=== PATIENT | male | born 1975 | race African-American/Black ===

== ENCOUNTER → 2017-03-01 | Outpatient (CLI) | payer BC ==
[2017-03-01 13:01] LABS: ABSOLUTE EOSINOPHILS # (AUTO) 0.2 10^3/uL (0.0-0.6); ABSOLUTE LYMPHOCYTES (AUTO) 2.5 10^3/uL (0.5-4.7); ABSOLUTE MONOCYTES (AUTO) 0.6 10^3/uL (0.1-1.4); ABSOLUTE NEUT (AUTO) 2.8 10^3/uL (1.7-8.2); BASOPHILS % (AUTO) 0.8 % (0-2); EOSINOPHILS % (AUTO) 3.2 % (0-6); HEMATOCRIT 50.6 % (37.9-51.0); HEMOGLOBIN 16.8 g/dL (13.5-17.0); HGB HCT DIFFERENCE -0.2; MEAN CORPUSCULAR HEMOGLOBIN 32.3 pg (27.0-33.4); MEAN CORPUSCULAR HGB CONC 33.2 g/dL (32.0-36.0); MEAN CORPUSCULAR VOLUME 97 fl (80-97); WHITE BLOOD COUNT 6.2 10^3/uL (4.0-10.5)
[2017-03-01 13:18] LABS: ALANINE AMINOTRANSFERASE 18 U/L (21-72); ALBUMIN 4.4 g/dL (3.5-5.0); ALKALINE PHOSPHATASE 100 U/L (38-126); ASPARTATE AMINO TRANSFERASE 21 U/L (17-59); BILIRUBIN,DIRECT 0.4 mg/dL (0.0-0.4); CHOLESTEROL 164.75 mg/dL (0-200); Direct HDL 42 mg/dL (>40); TOTAL PROTEIN 8.3 g/dL (6.3-8.2); TRIGLYCERIDES 71 mg/dL (<150)
[2017-03-01 13:35] LABS: DIRECT LDL 98 mg/dL (<100)
== END ==
LOC: DACC 11:20
PROVIDERS: ATTEND Physician Assistant
DX: L70.0 Acne vulgaris (principal)
CPT/HCPCS: 36415; 80061; 80076; 85025

== ENCOUNTER 2019-05-17 12:43 | Emergency (ER) | payer BC ==
[2019-05-17] MEDS ORDERED: KETOROLAC TROMETHAMINE INJ/PF 30 MG/1 ML SDV IV ONE (13:19)
[2019-05-17] MEDS ORDERED: NORMAL SALINE 1000 ML 1,000 ML IV ONE (13:19)
--- NOTE | 2019-05-17 13:21 | ER Document Report ---
ED Medical Screen (RME) - General Chief Complaint: Abdominal Pain Stated Complaint: ABDOMINAL PAIN Time Seen by Provider: 05/17/19 13:18 Primary Care Provider: MARICRUZ VITAL PA [Primary Care Provider] - Follow up as needed Mode of Arrival: Ambulatory Information source: Patient Notes: 43-year-old male presented to ED for complaint of right flank pain and abdominal pain for the last 3 or 4 days. He states it comes and goes waxes and wanes. He states sometimes he gets a headache and dizziness. States right now it is about a 3 out of 5 earlier today it was a 5 out of 5. He states he does smoke a pack and a half a day drinks 2 times a week does not do any kind of street drugs and works at [employer]. He states he lives alone. He is alert oriented respirations regular and unlabored speaking in full sentences walks with a even steady gait. His only medical history is high blood pressure. Patient is nontoxic in appearance at this time. I have greeted and performed a rapid initial assessment of this patient. A comprehensive ED assessment and evaluation of the patient, analysis of test results and completion of medical decision making process will be conducted by an additional ED providers. TRAVEL OUTSIDE OF THE [place] IN LAST 30 DAYS: No - Related Data Allergies/Adverse Reactions: No Known Allergies Allergy (Verified 05/17/19 12:44) Past Medical History - Social History Chew tobacco use (# tins/day): No Frequency of alcohol use: Social Drug Abuse: None Pulmonary Medical History: Denies: Hx Tuberculosis Renal/ Medical History: Denies: Hx Peritoneal Dialysis Past Surgical History: Denies: Hx Pacemaker - Immunizations Hx Diphtheria, Pertussis, Tetanus Vaccination: Yes Physical Exam - Vital signs Vitals: Temp Pulse Resp BP Pulse Ox 97.6 F 72 20 118/70 99 05/17/19 12:57 05/17/19 12:57 05/17/19 12:57 05/17/19 12:57 05/17/19 12:57 Course - Vital Signs Vital signs: Temp Pulse Resp BP Pulse Ox 97.6 F 72 20 118/70 99 05/17/19 12:57 05/17/19 12:57 05/17/19 12:57 05/17/19 12:57 05/17/19 12:57 Doctor's Discharge - Discharge Referrals: MARICRUZ VITAL PA [Primary Care Provider] - Follow up as needed
--- NOTE | 2019-05-17 13:47 | ER Document Report ---
ED General - General Chief Complaint: Abdominal Pain Stated Complaint: ABDOMINAL PAIN Time Seen by Provider: 05/17/19 13:18 Primary Care Provider: MARICRUZ VITAL PA [NO LOCAL MD] - Follow up as needed Mode of Arrival: Ambulatory TRAVEL OUTSIDE OF THE [place] IN LAST 30 DAYS: No - HPI Notes: 43-year-old male to the emergency department with complaints of right flank pain that radiates around to the front of his abdomen for the past 3 days. He denies any vomiting or diarrhea. He does admit to some nausea. He states that earlier today his pain was a 5 out of 5 and on presentation to triage she was a 3 out of 5 5 being the worst pain. He denies any fevers, chills, chest pain, shortness of breath, hematuria, difficulty urinating, burning with urination. He denies any blunt trauma to the abdomen. He does work outside and admits that he has been sweating quite a bit for the past 3 days. He denies worsening pain with eating. He denies any history of abdominal surgery. He denies any testicular pain. - Related Data Allergies/Adverse Reactions: No Known Allergies Allergy (Verified 05/17/19 12:44) Past Medical History - General Information source: Patient - Social History Smoking Status: Current Every Day Smoker Chew tobacco use (# tins/day): No Frequency of alcohol use: Social Drug Abuse: None Lives with: Spouse/Significant other Family History: Reviewed & Not Pertinent Patient has suicidal ideation: No Patient has homicidal ideation: No Pulmonary Medical History: Denies: Hx Tuberculosis Renal/ Medical History: Denies: Hx Peritoneal Dialysis Past Surgical History: Denies: Hx Pacemaker - Immunizations Hx Diphtheria, Pertussis, Tetanus Vaccination: Yes Review of Systems - Review of Systems Constitutional: Malaise. denies: Chills, Fever EENT: No symptoms reported Cardiovascular: denies: Chest pain, Palpitations, Dyspnea, Syncope, Dizziness, Lightheaded Respiratory: denies: Cough, Short of breath Gastrointestinal: Abdominal pain, Nausea. denies: Diarrhea, Vomiting Genitourinary: Flank pain. denies: Burning, Dysuria, Frequency, Hematuria Male Genitourinary: denies: Testicular pain Musculoskeletal: No symptoms reported Skin: No symptoms reported Neurological/Psychological: No symptoms reported -: Yes All other systems reviewed and negative Physical Exam - Vital signs Vitals: Temp Pulse Resp BP Pulse Ox 97.6 F 72 20 118/70 99 05/17/19 12:57 05/17/19 12:57 05/17/19 12:57 05/17/19 12:57 05/17/19 12:57 Interpretation: Normal - General General appearance: Appears well In distress: None - HEENT Head: Normocephalic, Atraumatic Eyes: Normal Pupils: PERRL - Respiratory Respiratory status: No respiratory distress Chest status: Nontender Breath sounds: Normal Chest palpation: Normal - Cardiovascular Rhythm: Regular Heart sounds: Normal auscultation Murmur: No - Abdominal Inspection: Normal Distension: No distension Bowel sounds: Normal Tenderness: Tender - Mild right flank tenderness to palpation. Negative Otero sign. Negative McBurney's point. No Rovsing's. No rebound or guarding. No CVA tenderness. Organomegaly: No organomegaly - Back Back: Normal, Nontender, Other - Supple sebaceous cyst to the back. None are tender to palpation. There is no evidence for superimposed infection. - Neurological Neuro grossly intact: Yes Cognition: Normal Orientation: AAOx4 Edson Coma Scale Eye Opening: Spontaneous Edson Coma Scale Verbal: Oriented Priyanka Coma Scale Motor: Obeys Commands Priyanka Coma Scale Total: 15 Speech: Normal Motor strength normal: LUE, RUE, LLE, RLE Sensory: Normal - Psychological Associated symptoms: Normal affect, Normal mood - Skin Skin Temperature: Warm Skin Moisture: Dry Skin Color: Normal Course - Re-evaluation Re-evalutation: 05/17/19 15:[address] reading with perinephric stranding. Noted urinalysis which is consistent with a urinary tract infection. Given his symptoms and his pain in the right flank suspect that this is likely a mild pyelonephritis. Noted elevated hemoglobin and mild acute kidney injuryhis creatinine is 1.35. Suspect that there is a level some dehydration here as well given his job. He was given Toradol from triage as well as a bag of fluid. We will give another 500 mL of normal saline and infuse 1 g of Rocephin. We have discussed his small acute kidney injury and how I would like for him not to take any further NSAIDs. Would like for him to have his creatinine redrawn on Sunday or Sunday to monitor it since he did get some Toradol today. The patient is not febrile, hypotensive, tachycardic, tachypneic. He does not have a leukocytosis. We will culture the urine. We will plan on sending him home with cephalosporins as well as small amount of pain medicine. He will be encouraged to return if he has worsening pain, fevers, intractable nausea/vomiting. Impression: Pyelonephritis, right flank pain, perinephritic stranding, mild acute kidney injury. Will discharge patient home with antibiotics and pain medicine. We will have him follow with primary care in the next 3 days and have his kidney function trended. We will also send to urology. Patient agrees with the plan. - Vital Signs Vital signs: Temp Pulse Resp BP Pulse Ox 97.6 F 72 20 118/70 99 05/17/19 12:57 05/17/19 12:57 05/17/19 12:57 05/17/19 12:57 05/17/19 12:57 - Laboratory Result Diagrams: 05/17/19 13:53 05/17/19 13:53 Laboratory results interpreted by me: 05/17/19 05/17/19 05/17/19 13:53 13:53 14:10 Hgb 18.4 H Hct 52.2 H MCV 100 H MCH 35.1 H RDW 14.5 H Chloride 97 L BUN 22 H Creatinine 1.35 H Est GFR (MDRD) Non-Af 57 L Direct Bilirubin 0.5 H Total Protein 9.7 H Albumin 5.1 H Urine Protein 30 H Urine Bilirubin SMALL H Urine Urobilinogen 4.0 H Ur Leukocyte Esterase MODERATE H - Diagnostic Test Radiology reviewed: Image reviewed, Reports reviewed Discharge - Discharge Clinical Impression: Pyelonephritis, Right flank pain, Acute kidney injury, Dehydration Condition: Stable Disposition: HOME, SELF-CARE Instructions: Pyelonephritis ([facility]) Additional Instructions: PUSH FLUIDS. STAY OUT OF THE HEAT. COMPLETE ANTIBIOTICS. REST. FOLLOW UP WITH PRIMARY CARE AND UROLOGY. HAVE YOUR KIDNEY FUNCTION REPEATED THIS WEEK ON EITHER SUNDAY OR SUNDAY. RETURN IF WORSENING PAIN, INTRACTABLE VOMITING, CHEST PAIN, SHORTNESS OF BREATH, OR ANY OTHER CONCERNS. STOP SMOKING. Prescriptions: Acetaminophen with Codeine [Tylenol #3 Tablet] 1 each PO Q4HP PRN #10 tablet PRN Reason: Cephalexin Monohydrate [Keflex 500 mg Capsule] 500 mg PO BID #20 capsule Forms: Return to Work Referrals: GIRMA MOJICA MD [ACTIVE STAFF] - Follow up in 3-5 days (for primary care f ollow up) [facility] [Provider Group] - Follow up in 1 week (for Urology follow up)
[2019-05-17 14:08] LABS: ABSOLUTE EOSINOPHILS # (AUTO) 0.1 10^3/uL (0.0-0.6); ABSOLUTE LYMPHOCYTES (AUTO) 2.1 10^3/uL (0.5-4.7); ABSOLUTE MONOCYTES (AUTO) 0.6 10^3/uL (0.1-1.4); ABSOLUTE NEUT (AUTO) 4.2 10^3/uL (1.7-8.2); BASOPHILS % (AUTO) 0.5 % (0-2); EOSINOPHILS % (AUTO) 1.1 % (0-6); HEMATOCRIT 52.2 % (37.9-51.0); HEMOGLOBIN 18.4 g/dL (13.5-17.0); LYMPHOCYTES % (AUTO) 30.1 % (13-45); MEAN CORPUSCULAR HEMOGLOBIN 35.1 pg (27.0-33.4); MEAN CORPUSCULAR HGB CONC 35.2 g/dL (32.0-36.0); MEAN CORPUSCULAR VOLUME 100 fl (80-97); MONOCYTES % (AUTO) 9.1 % (3-13); PLATELET COUNT 275 10^3/uL (150-450); RED BLOOD COUNT 5.23 10^6/uL (4.35-5.55); RED CELL DISTRIBUTION WIDTH 14.5 % (11.5-14.0); SEGMENTED NEUTROPHILS % (AUTO) 59.2 % (42-78); TOTAL CELLS COUNTED % (AUTO) 100 %
[2019-05-17 14:26] LABS: ALBUMIN 5.1 g/dL (3.5-5.0); ALKALINE PHOSPHATASE 116 U/L (38-126); ANION GAP 14 (5-19); ASPARTATE AMINO TRANSFERASE 38 U/L (17-59); BILIRUBIN,DIRECT 0.5 mg/dL (0.0-0.4); BILIRUBIN,TOTAL 1.2 mg/dL (0.2-1.3); BLOOD UREA NITROGEN 22 mg/dL (7-20); CALCIUM 10.1 mg/dL (8.4-10.2); CARBON DIOXIDE 27 mmol/L (22-30); CHLORIDE 97 mmol/L (98-107); GLUCOSE 105 mg/dL (75-110); POTASSIUM 3.8 mmol/L (3.6-5.0); TOTAL PROTEIN 9.7 g/dL (6.3-8.2)
--- NOTE | 2019-05-17 14:35 | RADIOLOGY REPORT (SQ) ---
EXAM DESCRIPTION: CT ABD/PELVIS NO ORAL OR IV COMPLETED DATE/TIME: 05/17/2019 2:10 pm REASON FOR STUDY: right flank pain . Right lower quadrant pain. Diffuse abdominal pain. COMPARISON: CT abdomen and pelvis 10/26/2011, 10/24/2011. TECHNIQUE: CT scan of the abdomen and pelvis performed without intravenous or oral contrast. Images reviewed with lung, soft tissue, and bone windows. Reconstructed coronal and sagittal MPR images revi ewed. All images stored on PACS. All CT scanners at this facility use dose modulation, iterative reconstruction, and/or weight based d osing when appropriate to reduce radiation dose to as low as reasonably achievable (ALARA). [facility]: Dose Right [facility]: CareDose [facility]: Dose Right [facility]: Teradose 4D [facility]: [employer] RADIATION DOSE: CT Rad equipment meets quality standard of care and radiation dose reduction techniq ues were employed. CTDIvol: 6.6 - 8.2 mGy. DLP: 490 mGy-cm.mGy. LIMITATIONS: None. FINDINGS: LOWER CHEST: No consolidation or pleural effusion. NON-CONTRASTED LIVER, SPLEEN, ADRENALS: Evaluation limited by lack of IV contrast. No identified sign ificant masses. PANCREAS: No peripancreatic inflammatory changes. GALLBLADDER: Present. RIGHT KIDNEY AND URETER: Mild perinephric stranding. Assessment for masses limited by lack of IV co ntrast. No significant calcifications. No hydronephrosis or hydroureter. LEFT KIDNEY AND URETER: Mild perinephric stranding. Assessment for masses limited by lack of IV cont rast. No significant calcifications. No hydronephrosis or hydroureter. AORTA AND RETROPERITONEUM: Atherosclerotic calcifications within the abdominal and its branches. No abdominal aortic aneurysm. No retroperitoneal masses or hemorrhage. BOWEL AND PERITONEAL CAVITY: No dilated bowel loops to suggest obstruction. No free fluid or free ai r. There is colonic diverticulosis with no CT evidence for acute diverticulitis. APPENDIX: Normal. PELVIS, BLADDER, AND ABDOMINAL WALL:No pelvic mass. No free fluid. Bladder partially distended. Ther e are small fat containing bilateral inguinal hernias. Enlarged lymph node at the right inguinal reg ion is measuring 1.4 cm in short axis. There is a 2.9 x 2.8 cm cystic lesion just underneath the skin in the right paraspinal soft tissues a t L2 level. Additional lesions with overlying skin thickening and soft tissue stranding at the right paraspinal soft tissues at L4 on L5 levels measuring 3.6 x 2.0 cm and 2.3 x 1.6 cm. BONES: No significant findings. IMPRESSION: 1. No hydronephrosis or obstructing ureteral calculus. Mild bilateral perinephric str anding, nonspecific, may be seen with acute infection/ inflammation such as pyelonephritis. Please c orrelate with laboratory values/ urinalysis. 2. 2.9 x 2.8 cm cystic lesion just underneath the skin at the right paraspinal soft tissues at L2 le gretchen and additional 3.6 x 2.0 cm and 2.3 x 1.6 cm lesions with overlying skin thickening and soft tiss ue stranding at the right paraspinal soft tissues at L4 and L5 levels, may represent sebaceous cysts. Please correlate with clinical exam to evaluate for superimposed infection/abscess formation. 3. Right inguinal adenopathy. 4. Colonic diverticulosis. COMMENT: Quality ID # [id number]: Final reports with documentation of one or more dose reduction techniques (e.g., Automated exposure control, adjustment of the mA and/or kV according to patient size, use of iterative reconstruction technique) TECHNICAL DOCUMENTATION: JOB ID: [id number] [place]-[employer] 2010 [employer]- All Rights Reserved Reading location - IP/workstation name: [email or web address]
[2019-05-17 14:42] LABS: APPEARANCE,URINE CLOUDY; BILIRUBIN,URINE SMALL (NEGATIVE); COLOR,URINE AMBER; GLUCOSE, URINE NEGATIVE (NEGATIVE); KETONES,URINE NEGATIVE (NEGATIVE); LEUKOCYTE ESTERASE,URINE MODERATE (NEGATIVE); NITRITE,URINE NEGATIVE (NEGATIVE); PROTEIN,URINE 30 mg/dL (NEGATIVE); URINE SPECIFIC GRAVITY 1.026
[2019-05-17] MEDS ORDERED: NORMAL SALINE 500 ML IV ONE (15:02)
[2019-05-17] MEDS ORDERED: CEFTRIAXONE 1 GM/D5W RTU 1 GM/50 ML RTUPB IV ONE (15:30)
[2019-05-17 16:27] VITALS: BP 124/77
== END 2019-05-17 16:22 | disposition home or self-care (01) ==
LOC: ER 12:43
DX: N12 Tubulo-interstitial nephritis, not specified as acute or chronic (principal); N17.9 Acute kidney failure, unspecified; E86.0 Dehydration; L72.3 Sebaceous cyst; R10.9 Unspecified abdominal pain; R11.0 Nausea; R53.81 Other malaise; F17.200 Nicotine dependence, unspecified, uncomplicated
CPT/HCPCS: 99284; 96361; 96375; 96365; 36415; 87086; 83690; 85025; 80053; 81001; 74176; J1885; J7030; J7040; J0696

== ENCOUNTER → 2020-01-10 | Outpatient (CLI) | payer BC ==
[2020-01-10 11:07] VITALS: BP 171/98
--- NOTE | 2020-01-10 11:07 | ER RDC ASSESSMENT REPORT ---
Intake - In the Last 14 days Have you traveled outside [place]?: No Have you been in close contact with someone CONFIRMED: No Worked in Healthcare?: No - Symptoms Subjective Fever([place] feverish): No Chills: No Muscule Aches: No Runny Nose: Yes Sore Throat: Yes Cough (New or worsening chronic cough): Yes Shortness of breath: Yes Nausea or Vomiting: No Headache: Yes Abdominal Pain: No Diarrhea(3 or more loose stools in last 24 hours): No - Do you have any of the following Chronic lung disease: Asthma or emphysema or COPD: No Cystic Fibrosis: No Diabetes: No High Blood Pressure: Yes Cardiovascular Disease: No Chronic Kidney Disease: No Chronic Liver Disease: No Chronic blood disorder like Sickle Cell Disease: No Weak immune system due to disease or medication: No Neurologic condition that limits movement: No Developmental delay - Moderate to Severe: No Recent (within past 2 weeks) or current : No Morbid Obesity (>100 pounds over ideal weight): No - Objective Temperature: 98.6 F Pulse Rate: 81 Respiratory Rate: 18 Blood Pressure: 171/98 O2 Sat by Pulse Oximetry: 87 Objective: Patient is a well-appearing 44-year-old male who presents today for COVID-19 screening. Disposition: Home; Selfcare General - General Stated Complaint: Upper respiratory symptoms that began yesterday Mode of Arrival: Ambulatory Information source: Patient Notes: The patient was evaluated during the global COVID 19 pandemic, and that diagnosis was suspected/considered upon their initial presentation. Their evaluation, treatment, and testing was consistent with current guidelines for patients who present with complaints or symptoms that may be related to COVID 19. - HPI Patient complains to provider of: Upper respiratory symptoms Onset: Yesterday Onset/Duration: Sudden Quality of pain: Achy Severity: Mild Pain Level: 2 Context: Generalized body aches. Associated symptoms: Body/muscle aches, Nonproductive cough, Headache, Rhinnorhea, Shortness of breath Exacerbated by: Denies Relieved by: Denies Similar symptoms previously: No Recently seen / treated by doctor: No - Related Data Allergies/Adverse Reactions: No Known Allergies Allergy (Verified 05/17/19 12:44) Past Medical History - Social History Smoking Status: Current Every Day Smoker Cigarette use (# per day): Yes - 2 packs/day Chew tobacco use (# tins/day): No Smoking Education Provided: Yes Frequency of alcohol use: Occasional Drug Abuse: None Occupation: [employer] employee Lives with: Family Family History: Reviewed & Not Pertinent Patient has suicidal ideation: No Patient has homicidal ideation: No - Past Medical History Cardiac Medical History: Reports: Hx Hypertension Pulmonary Medical History: Denies: Hx Tuberculosis Renal/ Medical History: Denies: Hx Peritoneal Dialysis Past Surgical History: Denies: Hx Pacemaker Physical Exam - General General appearance: Appears well In distress: None Notes: PHYSICAL EXAMINATION: GENERAL: Well-appearing and in no acute distress. HEAD: Atraumatic, normocephalic. EYES: sclera anicteric, conjunctiva are normal. ENT: nares patent. Moist mucous membranes. NECK: Normal range of motion, supple without lymphadenopathy. LUNGS: CTAB and equal. No wheezes rales or rhonchi. HEART: Regular rate and rhythm without murmurs. EXTREMITIES: Normal range of motion, no pitting edema. No cyanosis. BACK: No midline or CVA tenderness. NEUROLOGICAL: Cranial nerves grossly intact. Normal speech. PSYCH: Normal mood, normal affect. SKIN: Warm, Dry, normal color and turgor, no obvious lesions or rash noted. Diagnostic Results Laboratory Results: Patient notified of NEGATIVE results on Rapid Flu (A & B) and Rapid Strep. Advised Throat Culture and COVID testing are PENDING, and they will be notified of any POSITIVE results at a later date/time. Patient Education/Counseling Counseling/Education: Patient presents with upper respiratory symptoms worrisome for possible Covid 19. Patient does not have emergency worring symptoms such as difficulty breathing, shortness of breath, chest pain, pressure, confusion or cyanosis. Patient appears suitable for discharge as they are not of an advanced age, do not have any chronic medical conditions such as diabetes, CAD, immune deficiency, chronic lung disease or chronic kidney disease. Patient's vital signs are stable and patient is nontoxic in appearance. Good return precautions have been discussed with patient, patient verbalized understanding and is agreeable with discharge plan of care at this time. Patient provided COVID 19 discharge instructions to include: As a person under investigation for Covid 19, the [facility] of Health and Human Services, division of public health advises you to adhere to the following guidance until your test results are reported to you. If your test result is positive, you will receive additional information from your provider and your local health department at that time. Remain at home until you are cleared by the health provider or public health authorities. Keep a log of visitors to your home, notify any visitors to your home of your isolation status. If you plan to move to a new address or leave the county, notify the local health department in your County. Call your doctor or seek care if you have an urgent medical need. Before seeking medical care, call ahead to get instructions from the provider before arriving at the medical office clinic or hospital. Notify them that you are being tested for the virus that causes Covid 19 so that arrangements can be made, as necessary, to prevent transmission to others in the healthcare setting. Next, notify the local health department in your county. If a medical emergency arises and you need to call 911, inform dispatch and the first responders that you are being tested for the virus that causes Covid 19. Next, notify the local health department in your county. Patient provided education on smoking cessation including the harmful effects of smoking, and the increased health benefits of quitting. Guidance for worsening S/SX: For worsening symptoms, patient has been advised to contact their Primary Care Provider, or go to the nearest Emergency Department. RDC Discharge - Discharge Clinical Impression: COVID-19 Screening URI (upper respiratory infection) Qualifiers: URI type: unspecified URI Qualified Code(s): J06.9 - Acute upper respiratory infection, unspecified Condition: Stable Disposition: Home; Selfcare
[2020-01-10 13:13] LABS: A TYPE INFLUENZA AG NEGATIVE (NEGATIVE); B INFLUENZA AG NEGATIVE (NEGATIVE)
== END ==
LOC: RDC 10:08
PROVIDERS: ATTEND Nurse Practitioner Family
DX: Z20.828 Contact with and (suspected) exposure to other viral communicable diseases (principal)
CPT/HCPCS: 87070; 87804; 87880